=== PATIENT | male | born 1980 | race Two or more races ===

== ENCOUNTER 2017-06-29 09:25 | Inpatient (IN) | payer MEDICAID ==
[~2017-06-29] VITALS: Ht 165.1 cm; Wt 68.2 kg
[2017-06-29] MEDS ORDERED: MAALOX/HYOSCYAMINE/LIDOCAINE 45 ML BTL ONE (09:51)
[2017-06-29] MEDS ORDERED: MAALOX/HYOSCYAMINE/LIDOCAINE 45 ML BTL PO ONE (10:00)
[2017-06-29 10:27] LABS: BASOPHILS # (AUTO) 0.04 x10^3/uL (0-0.1); BASOPHILS % (AUTO) 0 % (0-1); EOSINOPHILS # (AUTO) 0.09 x10^3/uL (0-0.4); EOSINOPHILS % (AUTO) 1 % (1-7); LYMPHOCYTES # (AUTO) 1.89 x10^3/uL (1-3.4); LYMPHOCYTES % (AUTO) 16 % (22-44); MD NO; MEAN CORPUSCULAR HEMOGLOBIN 30.5 pg (27.5-34.5); MEAN CORPUSCULAR HGB CONC 34.4 g/dL (33.2-36.2); MEAN CORPUSCULAR VOLUME 88.9 fL (81-97); MEAN PLATELET VOLUME 10.2 fL (7.4-10.4); MONOCYTES # (AUTO) 0.58 x10^3/uL (0.2-0.8); MONOCYTES % (AUTO) 5 % (2-9); NEUTROPHILS # (AUTO) 9.06 x10^3/uL (1.8-6.8); NEUTROPHILS % (AUTO) 78 % (42-75); PLATELET COUNT 285 x10^3/uL (130-400); RED BLOOD COUNT 5.07 x10^6/uL (4.38-5.82); RED CELL DISTRIBUTION WIDTH 13.3 % (9.4-14.8)
[2017-06-29 10:36] LABS: ALANINE AMINOTRANSFERASE 50 U/L (12-78); ALBUMIN 3.8 g/dL (3.4-5.0); ANION GAP 6 mmol/L (5-15); CALCIUM 8.9 mg/dL (8.5-10.1); CHLORIDE 107 mmol/L (98-107); CREATININE 1.03 mg/dL (0.7-1.3)
[2017-06-29 10:38] LABS: ALKALINE PHOSPHATASE 132 U/L (45-117); BILIRUBIN,TOTAL 0.4 mg/dL (0.2-1.0); TOTAL PROTEIN 7.5 g/dL (6.4-8.2); TROPONIN I < 0.015 ng/mL (0.000-0.045)
[2017-06-29] MEDS ORDERED: SODIUM CHLORIDE 0.9% 1,000 ML IV ONE (10:52)
[2017-06-29] MEDS ORDERED: SODIUM CHLORIDE 0.9% 1,000ML IVBOLUS ONE (11:00)
[2017-06-29] MEDS ORDERED: SODIUM CHLORIDE FLUSH 10ML SYR IVF ONE (11:00)
[2017-06-29] MEDS ORDERED: OMNIPAQUE 350 MG/ML, 100ML BOTTLE ONE (11:59)
[2017-06-29 12:37] VITALS: BP 142/88
[2017-06-29 14:00] VITALS: BP 142/85
[2017-06-29] MEDS ORDERED: morphine SULFATE 10 MG/ML, 1ML IVPush PRN (14:30)
[2017-06-29] MEDS ORDERED: FAMOTIDINE 20 MG/2 ML IVPush ONE (14:30)
[2017-06-29] MEDS ORDERED: ONDANSETRON 2MG/ML, 2ML IVPush PRN (14:30)
[2017-06-29] MEDS ORDERED: D5%-LACTATED RINGERS 1,000 ML IV SCH (14:30)
[2017-06-29 19:26] VITALS: BP 133/75
[2017-06-29] MEDS ORDERED: ACETAMINOPHEN 325 MG TABLET PO ONE (20:00)
[2017-06-29] MEDS: FAMOTIDINE 20 MG/2 ML IVPush SCH (20:10)
[2017-06-29] MEDS: D5%-LACTATED RINGERS 1,000 ML IV SCH (20:11)
[2017-06-30 01:41] VITALS: BP_SYST 142; BP_SYST 165; BP_DIAS 90; BP_DIAS 94
[2017-06-30] MEDS: D5%-LACTATED RINGERS 1,000 ML IV SCH (02:31)
[2017-06-30 07:09] LABS: ALANINE AMINOTRANSFERASE 72 U/L (12-78); ALBUMIN 3.4 g/dL (3.4-5.0); ANION GAP 4 mmol/L (5-15); CALCIUM 8.4 mg/dL (8.5-10.1); CHLORIDE 107 mmol/L (98-107); CREATININE 1.05 mg/dL (0.7-1.3)
[2017-06-30 07:13] LABS: ALKALINE PHOSPHATASE 106 U/L (45-117); BILIRUBIN,TOTAL 0.7 mg/dL (0.2-1.0); CHOL/HDL RATIO 3.6; CHOLESTEROL, TOTAL 120 mg/dL (140-239); HDL CHOL % 28 % (26-37); HDL CHOLESTEROL (DIRECT) 33 mg/dL (40-60); LDL CHOLESTEROL,CALCULATED 70 mg/dL (54-169); LDL/HDL RATIO 2.1 (0.5-3.0); TOTAL PROTEIN 6.4 g/dL (6.4-8.2); TRIGLYCERIDES 83 mg/dL (50-200); VLDL CHOLESTEROL 17 mg/dL (0-25)
[2017-06-30 07:39] VITALS: BP 137/81
[2017-06-30] MEDS ORDERED: POTASSIUM CHLORIDE 20 MEQ TAB.ER.PRT PO ONE (08:00)
[2017-06-30] MEDS ORDERED: MAGNESIUM SULFATE PMX 2GM/50ML 50 ML IV ONE (08:00)
[2017-06-30] MEDS ORDERED: LORazepam 1MG TABLET PO ONE (11:00)
[2017-06-30] MEDS ORDERED: CHLORDIAZEPOXIDE 25 MG CAPSULE PO PRN ×3 (11:00)
[2017-06-30] MEDS ORDERED: LORazepam 1MG TABLET PO PRN (11:00)
[2017-06-30] MEDS ORDERED: LORazepam 0.5MG TABLET PO PRN (11:00)
[2017-06-30] MEDS ORDERED: CHLORDIAZEPOXIDE 10 MG CAPSULE PO PRN (11:00)
[2017-06-30] MEDS: FAMOTIDINE 20 MG/2 ML IVPush SCH (11:08)
[2017-06-30 12:00] VITALS: BP 136/78
[2017-06-30 13:30] VITALS: BP 152/93
== END 2017-06-30 18:19 | disposition home or self-care (01) | DRG 440 ==
LOC: ED 11:04 → EDIP 11:14 → 3NE 12:36
PROVIDERS: ADMIT Internal Medicine; ATTEND Internal Medicine
DX: K85.00 Idiopathic acute pancreatitis without necrosis or infection (principal); F41.9 Anxiety disorder, unspecified; I10 Essential (primary) hypertension; Z90.49 Acquired absence of other specified parts of digestive tract
CPT/HCPCS: 36415; 71045; 74177; 80053; 80061; 82150; 83690; 83735; 84484; 85025; 93005; 99285; Q9967; J3475; J7030; J7121; S0028

== ENCOUNTER 2017-08-11 03:59 | Emergency (ER) | payer MEDICAID ==
[~2017-08-11] VITALS: Ht 165.1 cm; Wt 64.9 kg
[2017-08-11 04:00] VITALS: BP 189/120
[2017-08-11] MEDS ORDERED: DIPH,PERTUSS(ACELL),TET VAC/PF 0.5 ML IM-VACC ONE ×2 (04:45→05:00)
== END 2017-08-11 05:44 | disposition home or self-care (01) ==
LOC: ED 05:15
DX: L02.11 Cutaneous abscess of neck (principal); I10 Essential (primary) hypertension
CPT/HCPCS: 90715; 96372; 99283